=== PATIENT | male | born 1970 | race Two or more races ===

== ENCOUNTER 2024-07-09 19:55 | Emergency (ER) | payer SELFPAY ==
[~2024-07-09] VITALS: Ht 182.9 cm; Wt 181.4 kg
[2024-07-10 04:40] VITALS: BP 110/81; TEMP 97; O2SAT 97
== END 2024-07-10 04:41 | disposition home or self-care (01) ==
LOC: ER 20:01
DX: F10.129 Alcohol abuse with intoxication, unspecified (principal); Z59.00 Homelessness unspecified; Y90.9 Presence of alcohol in blood, level not specified
CPT/HCPCS: 82962-TC